=== PATIENT | male | born 1975 | race Caucasian/White ===

== ENCOUNTER 2018-07-05 04:22 | Emergency (ER) | payer BC ==
[2018-07-05] MEDS ORDERED: Ketorolac 60 MG/2 ML SDV IM ONE (04:52)
--- NOTE | 2018-07-05 05:00 | EDM.PDOC ---
ED HPI GENERAL MEDICAL PROBLEM - General Chief Complaint: General Stated Complaint: HEADACHE Time Seen by Provider: 07/05/18 04:40 Source of Information: Reports: Patient History Limitations: Reports: No Limitations - History of Present Illness INITIAL COMMENTS - FREE TEXT/NARRATIVE: 42-year-old male with cough, burning chest, generalized body aches and fever for the past 24-48 hours. No nausea or vomiting. No significant shortness of breath. He has a horrible headache and both shoulders hurt. Several members of his family are also sick. Onset: Gradual Duration: Day(s): (2 days) Location: Reports: Generalized Associated Symptoms: Reports: Chest Pain, Cough, Fever/Chills, Headaches, Loss of Appetite, Malaise. Denies: Nausea/Vomiting, Shortness of Breath generalized Pain Score (Numeric/FACES): 8 - Related Data Allergies Allergy/AdvReac Type Severity Reaction Status Date / Time No Known Allergies Allergy Verified 07/05/18 04:35 Home Meds: Home Meds NK [No Known Home Meds] 07/05/18 [History] Past Medical History Respiratory History: Reports: Bronchitis, Recurrent Gastrointestinal History: Reports: GERD Musculoskeletal History: Reports: Fracture Neurological History: Reports: Other (See Below) Other Neuro History: lima's palsy Endocrine/Metabolic History: Reports: Obesity/BMI 30+ Dermatologic History: Reports: Urticaria - Past Surgical History GI Surgical History: Reports: Cholecystectomy Musculoskeletal Surgical History: Reports: Other (See Below) Other Musculoskeletal Surgeries/Procedures:: left ankle Social & Family History - Tobacco Use Years of Tobacco use: 25 Packs/Tins Daily: 0.2 - Caffeine Use Caffeine Use: Reports: Soda - Recreational Drug Use Recreational Drug Use: No ED ROS GENERAL - Review of Systems Review Of Systems: See Below Constitutional: Reports: Fever, Chills, Malaise HEENT: Denies: Ear Pain, Throat Pain Respiratory: Reports: Shortness of Breath, Pleuritic Chest Pain, Cough Cardiovascular: Reports: Chest Pain (Burning in his central chest when coughing) GI/Abdominal: Reports: No Symptoms : Reports: No Symptoms Skin: Reports: No Symptoms Neurological: Reports: Headache Psychiatric: Reports: No Symptoms ED EXAM, GENERAL - Physical Exam Exam: See Below Exam Limited By: No Limitations General Appearance: Alert, No Apparent Distress (Looks uncomfortable but not distressed) Eye Exam: Bilateral Eye: Normal Inspection Ears: Normal TMs Throat/Mouth: Other (Mild pharyngeal erythema) Head: Atraumatic Neck: No: Lymphadenopathy (R), Lymphadenopathy (L) Respiratory/Chest: No Respiratory Distress, Lungs Clear Cardiovascular: No Rub, Tachycardia Neurological: Alert, Oriented Psychiatric: Normal Affect, Normal Mood Skin Exam: Warm, Dry Course - Vital Signs Last Recorded V/S: Last Vital Signs Temp 101.3 F H 07/05/18 04:36 Pulse 120 H 07/05/18 04:36 Resp 20 07/05/18 04:36 BP 138/91 H 07/05/18 04:36 Pulse Ox 94 L 07/05/18 04:36 - Orders/Labs/Meds Meds: Medications Discontinued Medications Generic Name Dose Route Start Last Admin Trade Name Jerrica PRN Reason Stop Dose Admin Ketorolac Tromethamine 60 mg 07/05/18 04:52 07/05/18 04:56 Toradol IM 07/05/18 04:53 60 mg ONETIME ONE Administration - Re-Assessments/Exams Free Text/Narrative Re-Assessment/Exam: 07/05/18 04:59 This patient previously had similar symptoms and was treated with antibiotics and improved. It sounds like influenza, influenza antigens were obtained and he was given 60 mg of IM Toradol. 07/05/18 05:20 Influenza is negative. He'll be covered with a ten-day course of amoxicillin which he is convinced worked for him last time he had identical symptoms. Departure - Departure Time of Disposition: 05:31 Disposition: Home, Self-Care 01 Clinical Impression: Bronchitis - Discharge Information Instructions: Acute Bronchitis, Adult, [id number] Referrals: Narinder Magallanes MD [Primary Care Provider] - Forms: ED Department Discharge Care Plan Goals: Rest today, ibuprofen on a regular basis should help and drink lots of fluids. Take antibiotic as prescribed. Consider rechecking in 3-4 days if not improving satisfactorily, or return if worsening such as difficulty breathing.
== END 2018-07-05 05:31 | disposition home or self-care (01) ==
LOC: JP.ED 04:22
DX: J40 Bronchitis, not specified as acute or chronic (principal)
CPT/HCPCS: 87804; 96372; 99284; J1885

== ENCOUNTER 2019-10-22 09:28 | Emergency (ER) | payer BC ==
--- NOTE | 2019-10-22 09:59 | EDM.PDOC ---
ED HPI GENERAL MEDICAL PROBLEM - General Chief Complaint: Laceration Stated Complaint: CUT ON LIP Time Seen by Provider: 10/22/19 09:45 Source of Information: Reports: Patient History Limitations: Reports: No Limitations - History of Present Illness INITIAL COMMENTS - FREE TEXT/NARRATIVE: 44-year-old male with a small laceration on his lip from an accidental bite from his dog. He just wants it checked to see if anything needs to be done. Onset: Sudden Duration: Hour(s): (1 hour ago) Location: Reports: Face - Related Data Allergies Allergy/AdvReac Type Severity Reaction Status Date / Time No Known Allergies Allergy Verified 10/22/19 09:45 Home Meds: Home Meds NK [No Known Home Meds] 07/05/18 [History] Past Medical History Respiratory History: Reports: Bronchitis, Recurrent Gastrointestinal History: Reports: GERD Musculoskeletal History: Reports: Fracture Neurological History: Reports: Other (See Below) Other Neuro History: lima's palsy Endocrine/Metabolic History: Reports: Obesity/BMI 30+ Dermatologic History: Reports: Urticaria - Past Surgical History GI Surgical History: Reports: Cholecystectomy Musculoskeletal Surgical History: Reports: Other (See Below) Other Musculoskeletal Surgeries/Procedures:: left ankle Social & Family History - Caffeine Use Caffeine Use: Reports: Soda - Recreational Drug Use Recreational Drug Use: No ED ROS GENERAL - Review of Systems Review Of Systems: See Below Constitutional: Denies: Fever HEENT: Denies: Dental Pain Respiratory: Denies: Shortness of Breath, Cough Cardiovascular: Denies: Chest Pain GI/Abdominal: Denies: Nausea, Vomiting Neurological: Denies: Headache ED EXAM, SKIN/RASH Exam: See Below Exam Limited By: No Limitations General Appearance: Alert, No Apparent Distress Throat/Mouth: Other (Patient is a small 1 cm superficial abrasion on the left upper lip that crosses the vermilion border. The inside of the lip is not involved) Respiratory/Chest: No Respiratory Distress Extremities: Other (Some scattered superficial abrasions on the extremities) Psychiatric: Normal Affect, Normal Mood Course - Vital Signs Last Recorded V/S: Last Vital Signs Temp 97.6 F 10/22/19 09:42 Pulse 84 10/22/19 09:42 Resp 16 10/22/19 09:42 BP 126/72 10/22/19 09:42 Pulse Ox 97 10/22/19 09:42 - Re-Assessments/Exams Free Text/Narrative Re-Assessment/Exam: 10/22/19 10:27 Reassured the patient that nothing needs repair. He should keep the abrasions clean while healing and return if concerns of infection or not healing satisfactorily. Departure - Departure Time of Disposition: 10:02 Disposition: Home, Self-Care 01 Clinical Impression: Abrasion of lip Qualifiers: Encounter type: initial encounter Qualified Code(s): S00.511A - Abrasion of lip, initial encounter - Discharge Information Instructions: Wound Care, Adult Referrals: PCP,None [Primary Care Provider] - Forms: ED Department Discharge Care Plan Goals: Keep wounds clean while healing, and return if concerns of infection. Sepsis Event Note (ED) - Evaluation Sepsis Screening Result: No Definite Risk - Focused Exam Vital Signs: Vital Signs Temp Pulse Resp BP Pulse Ox 10/22/19 09:42 97.6 F 84 16 126/72 97
== END 2019-10-22 10:13 | disposition home or self-care (01) ==
LOC: JP.ED 09:28
DX: S00.511A Abrasion of lip, initial encounter (principal); S80.819A Abrasion, unspecified lower leg, initial encounter; S60.519A Abrasion of unspecified hand, initial encounter; E66.9 Obesity, unspecified; Z68.34 Body mass index [BMI] 34.0-34.9, adult; W54.0XXA Bitten by dog, initial encounter
CPT/HCPCS: 99282

== ENCOUNTER 2021-01-31 11:09 | Emergency (ER) | payer OTHER, BC ==
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
== END 2021-01-31 12:21 | disposition home or self-care (01) ==
LOC: JP.ED 11:09
DX: S10.93XA Contusion of unspecified part of neck, initial encounter (principal); E66.9 Obesity, unspecified; Z68.34 Body mass index [BMI] 34.0-34.9, adult; Z87.891 Personal history of nicotine dependence; V89.2XXA Person injured in unspecified motor-vehicle accident, traffic, initial encounter; Y92.410 Unspecified street and highway as the place of occurrence of the external cause; Y99.0 Civilian activity done for income or pay
CPT/HCPCS: 99283

== ENCOUNTER 2022-02-04 12:58 | Emergency (ER) | payer BC, OTHER | END 2022-02-04 13:51 | disposition home or self-care (01) | LOC: JP.ED 12:58 | DX: S93.492A Sprain of other ligament of left ankle, initial encounter (principal); F17.210 Nicotine dependence, cigarettes, uncomplicated; E66.9 Obesity, unspecified; Z68.33 Body mass index [BMI] 33.0-33.9, adult; Z90.49 Acquired absence of other specified parts of digestive tract | CPT/HCPCS: 73610-26-LT; 73610-LT; 99283 ==